=== PATIENT | female | born 1990 | race Caucasian/White ===

== ENCOUNTER 2020-03-23 15:03 | Emergency (ER) | payer OTHER ==
[~2020-03-23] VITALS: Ht 160 cm; Wt 83.6 kg
[2020-03-23 15:10] VITALS: TEMP 98.7
[2020-03-23 15:49] LABS: COLLECTION METHOD CLEAN CATCH
[2020-03-23 15:52] LABS: BASO % 0.2 % (0.0-2.0); EOS # 0.1 (0.0-0.7); EOS % 0.9 % (0-4.0); GRAN # 6.1 (1.4-6.5); GRAN % 73.5 % (42.2-75.2); HEMATOCRIT 37.4 % (37.0-47.0); HEMOGLOBIN 12.6 g/dl (12.5-16.0); LYMPH # 1.4 (1.2-3.4); LYMPH % 17.3 % (20.0-51.0); MEAN CELL VOLUME 86 fl (80.0-100.0); MEAN CORPUSCULAR HEMOGLOBIN 29 pg (27.0-31.0); MEAN CORPUSCULAR HGB CONC 34 g/dl (33.0-37.0); MEAN PLATELET VOLUME 10.1 fl (7.4-10.4); MONO # 0.6 (0.1-0.6); MONO % 7.1 % (1.7-9.3); PLATELET COUNT 285 K/mm3 (130-400); RED BLOOD COUNT 4.33 M/mm3 (4.10-5.30); REDCELL DISTRIBUTION WIDTH-CV 12.9 % (11.5-14.5)
[2020-03-23 16:04] LABS: ALBUMIN 3.7 gm/dL (3.5-5.0); BILIRUBIN,TOTAL 0.4 mg/dL (0.0-1.0); CALCIUM 9.1 mg/dL (8.4-10.2); CREATININE, serum 0.54 (0.52-1.25); TOTAL PROTEIN 6.9 gm/dL (6.4-8.2)
[2020-03-23 16:08] LABS: C-REACTIVE PROTEIN 0.5 mg/dL (0.0-0.9)
[2020-03-23 16:09] LABS: MUCOUS Present /lpf; PH 6 (5-8); URINE APPEARANCE Hazy; URINE BACTERIA None Seen /hpf; URINE BILIRUBIN Negative (NEGATIVE); URINE BLOOD Negative (NEGATIVE); URINE COLOR Yellow; URINE GLUCOSE Negative (NEGATIVE); URINE KETONE Negative (NEGATIVE); URINE LEUKOCYTE ESTERASE Negative (NEGATIVE); URINE NITRATE Negative (NEGATIVE); URINE PROTEIN(semi-quant) Negative (NEGATIVE); URINE RBC 0-2 /hpf; URINE UROBILINOGEN Negative (NEGATIVE)
[2020-03-23] MEDS ORDERED: MEDROL 4MG DOSPA4 MG PO (16:16)
[2020-03-23] MEDS ORDERED: VALTREX1 GM PO (16:16)
[2020-03-23 17:07] VITALS: BP 107/72; PULSE 72
== END 2020-03-23 17:00 | disposition home or self-care (01) ==
LOC: COL.ER 15:03
PROVIDERS: Emergency Medicine
DX: O26.892 Other specified pregnancy related conditions, second trimester (principal); R51.9 Headache, unspecified; R20.0 Anesthesia of skin; Z3A.20 20 weeks gestation of pregnancy
CPT/HCPCS: J7512

== ENCOUNTER 2021-05-22 10:40 | Emergency (ER) | payer OTHER ==
[~2021-05-22] VITALS: Ht 160 cm; Wt 85.0 kg
[~2021-05-22 10:40] MED LIST: MEDROL 4MG DOSPA4 MG PO; VALTREX1 GM PO
[2021-05-22] MEDS ORDERED: ZOFRAN ODT4 MG PO (16:03)
[2021-05-22 16:13] VITALS: BP 132/68; PULSE 79; TEMP 98.2
== END 2021-05-22 16:14 | disposition home or self-care (01) ==
LOC: COL.ER 10:40
DX: B34.9 Viral infection, unspecified (principal)